=== PATIENT | female | born 1980 | race Caucasian/White ===

== ENCOUNTER 2017-01-05 19:39 | Emergency (ER) | payer BC ==
[~2017-01-05] VITALS: Ht 165.1 cm; Wt 90.9 kg
[~2017-01-05 19:39] MED LIST: PRENATAL1 TA1 PO; VALTREX 50500 MG/TAB PO
[2017-01-05 19:56] VITALS: BP 161/94
[2017-01-05 21:34] LABS: PH 5 (5-8); URINE BACTERIA Rare /hpf; URINE BILIRUBIN Negative (NEGATIVE); URINE BLOOD Negative (NEGATIVE); URINE COLOR Yellow; URINE GLUCOSE Negative (NEGATIVE); URINE KETONE Negative (NEGATIVE); URINE RBC 0-2 /hpf; URINE UROBILINOGEN Negative (NEGATIVE); URINE WBC 0-2 /hpf
[2017-01-05 21:36] LABS: URINE APPEARANCE Clear
[2017-01-05 22:02] LABS: BASO % 0.3 % (0.0-2.0); EOS # 0.1 (0.0-0.7); EOS % 1.2 % (0-4.0); GRAN # 9.7 (1.4-6.5); GRAN % 80.4 % (42.2-75.2); HEMATOCRIT 39.4 % (37.0-47.0); HEMOGLOBIN 13.6 g/dl (12.5-16.0); LYMPH # 1.6 (1.2-3.4); LYMPH % 13.5 % (20.0-51.0); MEAN CELL VOLUME 82 fl (80.0-100.0); MEAN CORPUSCULAR HEMOGLOBIN 28 pg (27.0-31.0); MEAN CORPUSCULAR HGB CONC 35 g/dl (33.0-37.0); MEAN PLATELET VOLUME 11.1 fl (7.4-10.4); MONO # 0.5 (0.1-0.6); MONO % 4.1 % (1.7-9.3); PLATELET COUNT 231 K/mm3 (130-400); RED BLOOD COUNT 4.81 M/mm3 (4.10-5.30); REDCELL DISTRIBUTION WIDTH-CV 11.7 % (11.5-14.5); WHITE BLOOD COUNT 12.1 K/mm3 (4.8-10.8)
[2017-01-05 22:15] LABS: ADJUSTED CALCIUM 8.9 mg/dL (8.4-10.2); ALBUMIN 4.4 gm/dL (3.5-5.0); BILIRUBIN,TOTAL 0.4 mg/dL (0.0-1.0); CALCIUM 9.2 mg/dL (8.4-10.2); CREATININE, serum 0.64 mg/dL (0.52-1.25); POTASSIUM 3.6 mmol/L (3.4-5.0); TOTAL PROTEIN 7.2 gm/dL (6.4-8.2)
[2017-01-05] MEDS ORDERED: FLAGYL500 MG PO (23:49)
[2017-01-06 00:22] VITALS: PULSE 75; TEMP 99.2
[2017-01-06 01:27] LABS: CHLAMYDIA/TRACH by PCR Female NOT DETECTED; NEISSERIA GON by PCR Female NOT DETECTED
== END 2017-01-06 00:20 | disposition home or self-care (01) ==
LOC: COL.ER 19:39
PROVIDERS: Nurse Practitioner
DX: R10.31 Right lower quadrant pain (principal); N76.0 Acute vaginitis; B96.89 Other specified bacterial agents as the cause of diseases classified elsewhere; Z97.5 Presence of (intrauterine) contraceptive device; R19.7 Diarrhea, unspecified
CPT/HCPCS: J1170; J7030; Q9967

== ENCOUNTER → 2019-02-03 | Outpatient (CLI) | payer BC ==
[~2019-02-03] MED LIST changes: +FLAGYL500 MG PO
== END ==
LOC: DIA.ED 12:01
DX: O24.419 Gestational diabetes mellitus in pregnancy, unspecified control (principal); Z3A.32 32 weeks gestation of pregnancy
CPT/HCPCS: G0108

== ENCOUNTER → 2019-03-10 | Outpatient (CLI) | payer BC | LOC: DIA.ED 02-25 13:39 | DX: O24.419 Gestational diabetes mellitus in pregnancy, unspecified control (principal) | CPT/HCPCS: G0108 ==

== ENCOUNTER → 2019-03-23 | Outpatient (CLI) | payer BC | LOC: DIA.ED 03-16 15:25 | DX: O24.419 Gestational diabetes mellitus in pregnancy, unspecified control (principal); Z3A.35 35 weeks gestation of pregnancy | CPT/HCPCS: G0108 ==

== ENCOUNTER 2019-04-10 15:40 | Outpatient (CLI) | payer BC ==
[~2019-04-10] VITALS: Ht 165.1 cm; Wt 106.4 kg
--- NOTE | 2019-04-10 15:30 | NUR ---
Patient ambulatory to LR4, changed into gown, FH/TOCO monitors placed and explained. Patient states she has had some what she thinks leaking of fluid. Denies any vaginal bleeding or regular contractions. movement normal per patient. Plan of care discussed. SVE-3/60/-3 and amniotest negative, white mucus discharge noted on glove. Dr. Cruz called and notified. 1600: Patient off monitor to ambulate. 1615: SVE unchanged and amniotest negative.
[2019-04-10] MEDS ORDERED: CONCEPT DHA1 CAP PO (15:58)
[2019-04-10 16:00] VITALS: BP 141/83; PULSE 93; TEMP 97.9
[2019-04-10] MEDS ORDERED: VALTREX 50500 MG/TAB PO (16:03)
[2019-04-10] MEDS ORDERED: LEVEMIR100 U/ML SQ (16:04)
--- NOTE | 2019-04-10 16:26 | NUR ---
FHR baseline 165-170 with moderate variabilty. 1640: FHR baseline 145-150 with moderate variability noted. 1651: Patient off monitor and given discharge instructions and verbalizes understanding. Signs papers. 1700: Patient ambulates off unit with family.
[2019-04-10 16:51] VITALS: BP 124/78; PULSE 92
== END 2019-04-10 17:00 | disposition home or self-care (01) ==
LOC: LDRO 15:40 → LDR 16:05 → LDRO 17:00
DX: Z34.93 Encounter for supervision of normal pregnancy, unspecified, third trimester (principal); Z3A.38 38 weeks gestation of pregnancy
CPT/HCPCS: OP

== ENCOUNTER 2019-04-15 06:52 | Inpatient (IN) | payer BC ==
[2019-04-15] VITALS (28 sets, daily range): BP systolic 117–170; BP diastolic 65–96; PULSE 78–120; TEMP 97.5–98.8
[~2019-04-15] VITALS: Ht 165.1 cm; Wt 106.4 kg
[~2019-04-15 06:52] MED LIST changes: +CONCEPT DHA1 CAP PO; +LEVEMIR100 U/ML SQ
--- NOTE | 2019-04-15 07:00 | NUR ---
Patient ambulatory to LR6 with spouse, changed into gown, FHR/TOCO placed and explained. Patient denies any regular contractions, leaking of fluid, vaginal bleeding. States normal movement. Plan of care discussed and questions answered. 0715: IV started per Rich RN in left hand, blood obtained and to lab, LR infusing. Assessment completed and consents gone over and signed/ packet given. 0720: Dr. Wen at bedside assessing patient and FHR strip. 0724: SVE-3/70/-2 and AROM with clear fluid noted at this time. Plan of care discussed. Patient requests epidural and Yesica [employer] COMM[employer] notified. 0822: Patient sits on edge of bed for placement of epidural. Difficulty tracing FHR due to maternal position. 0830: Test dose given and patient tolerates well. 0836: Patient repositioned and safety precautions gone over and plan of care discussed.
[2019-04-15 08:09] LABS: BASO % 0.2 % (0.0-2.0); EOS # 0.1 (0.0-0.7); EOS % 0.6 % (0-4.0); GRAN # 6.4 (1.4-6.5); GRAN % 75.6 % (42.2-75.2); HEMOGLOBIN 11.7 g/dl (12.5-16.0); LYMPH # 1.6 (1.2-3.4); LYMPH % 19.5 % (20.0-51.0); MEAN CELL VOLUME 76 fl (80.0-100.0); MEAN CORPUSCULAR HEMOGLOBIN 25 pg (27.0-31.0); MEAN CORPUSCULAR HGB CONC 32 g/dl (33.0-37.0); MEAN PLATELET VOLUME 11.5 fl (7.4-10.4); MONO # 0.3 (0.1-0.6); MONO % 3.6 % (1.7-9.3); PLATELET COUNT 205 K/mm3 (130-400); RED BLOOD COUNT 4.78 M/mm3 (4.10-5.30); REDCELL DISTRIBUTION WIDTH-CV 13.5 % (11.5-14.5)
[2019-04-15 08:11] LABS: HEMATOCRIT 36.1 % (37.0-47.0)
--- NOTE | 2019-04-15 09:55 | NUR ---
Cartagena catheter placed and patient tolerates well. SVE-4-5/80/-[address] RN does cervical check at this time. Difficulty tracing FHR and monitor being adjusted. Plan of care discussed and will continue to monitor.
--- NOTE | 2019-04-15 11:45 | NUR ---
Patient very uncomfortable with contractions at this time. Patient has pushed epidural button x2 and Yesica MANN notified. SVE-8/90/[address] Wen notified and orders to call Dr. Patel for delivery if soon due to him being in surgery. 1200: FHR baseline 115-120 bpm and tracing recurrent variable/early decelerations. 1205: SVE-10/100/+1 and patient feeling pressure. 1215: FHR variable decelertion decreasing to 60-75 bpm and spontaneously returning to baseline. Patient prepared for vaginal delivery. 1220: Dr Patel at bedside and assessing patient and FHR monitors. FHR baseline 115-120bpm Pushing instructions gone over and pericare done. 1224: Patient begins to push with Dr. Patel. 1225: Spontaneous vaginal of head followed by body, bulb syringed and to patient abdomen, Isadora Pineda RN assumes care of infant. Cord clamped by Dr. Patel and cut by FOB. Cord blood obtained. 1229: Spontaneous vaginal delivery of placenta and pitocin bolus started per protocol. Fundal massage done/firm/bleeding WNL. Pericare done and bed back together Patient repositioned and ice pack to perineum. Plan of care discussed.
--- NOTE | 2019-04-15 14:40 | NUR ---
Patients sitting on edge bed and dangles feet. Epidural catheter removed and patient tolerates well. Patient ambulates to bathroom and voids. Pericare done, new gown, ice pack and underwear on. Patient ambulates to new room and oriented to . Whiteboard gone over and discussed. Plan of care discussed.
[2019-04-16 00:05] VITALS: BP 121/78; PULSE 90; TEMP 98.5
[2019-04-16 04:10] VITALS: BP 102/67; PULSE 77; TEMP 97.8
[2019-04-16 07:00] VITALS: BP 144/85; PULSE 81; TEMP 97.9
--- NOTE | 2019-04-16 11:27 | NUR ---
Initial visit; Parents thanked Telecommunications Professional for offering Congratulations and God's blessings for the of their son. Telecommunications Professional thanked family for choosing [facility].
[2019-04-16 11:30] VITALS: BP 133/85; PULSE 78
--- NOTE | 2019-04-16 14:50 | NUR ---
Discharge information given and patient verbalizes understanding. Bands off baby. checked in car seat. 1500: Patient ambulatory off unit with spouse and baby and this RN. Patient to return in morning for rpt bili and will picker/puller prescriptions.
[2019-04-16] MEDS ORDERED: PERCOCET 325 MG1 TA2 PO (15:05)
[2019-04-16] MEDS ORDERED: MOTRIN 800800 MG/TAB PO (15:05)
== END 2019-04-16 15:00 | disposition home or self-care (01) | DRG 807 ==
LOC: LDR 06:52 → OB 06:52
PROVIDERS: ADMIT Obstetrics & Gynecology
PROC: 10E0XZZ Delivery of Products of Conception, External Approach (ICD-10-PCS; principal; 2019-04-15)
PROC: 10907ZC Drainage of Amniotic Fluid, Therapeutic from Products of Conception, Via Natural or Artificial Opening (ICD-10-PCS; 2019-04-15)
DX: O24.424 Gestational diabetes mellitus in childbirth, insulin controlled (principal); Z37.0 Single live birth; Z3A.39 39 weeks gestation of pregnancy; O99.214 Obesity complicating childbirth; E66.9 Obesity, unspecified; O69.81X0 Labor and delivery complicated by cord around neck, without compression, not applicable or unspecified; O70.0 First degree perineal laceration during delivery
CPT/HCPCS: J2590; J2791; J7030; J7120